=== PATIENT | male | born 1990 | race Caucasian/White ===

== ENCOUNTER 2020-09-22 15:15 | Emergency (ER) | payer BC ==
[2020-09-22 15:28] VITALS: BP 168/80; RESP 16; TEMP 97.9
[2020-09-22 15:29] VITALS: PULSE 71
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
--- NOTE | 2020-09-22 17:20 | XR ---
Result: Clinical History: Pain status post injury. Comparison: None available. Technique: 3 views of the right knee. 2 views of the right tibia and fibula. Findings: The bone mineralization is appropriate for age. There is 7 mm avulsion fracture of the lateral tibial plateau involving the collateral ligament attac hment. No evidence of dislocation. The joint spaces are preserved. There is small knee joint effusio n. No evidence of fracture fracture of the distal tibia and fibula. Impression: Small avulsion fracture of the lateral tibial plateau involving the collateral ligament attachment.
== END 2020-09-22 17:54 | disposition home or self-care (01) ==
LOC: EC 15:15
DX: S82.121A Displaced fracture of lateral condyle of right tibia, initial encounter for closed fracture (principal); V19.9XXA Pedal cyclist (driver) (passenger) injured in unspecified traffic accident, initial encounter
CPT/HCPCS: 73590; 73564; 99283; L1830 ×2

== ENCOUNTER → 2020-09-27 | Outpatient (CLI) | payer BC ==
--- NOTE | 2020-09-27 15:30 | US ---
EXAMINATION TYPE: US venous doppler duplex LE RT DATE OF EXAM: 09/27/2020 3:05 PM COMPARISON: NONE CLINICAL HISTORY: M79.669 Pain in unspecified lower leg. SIDE PERFORMED: Right TECHNIQUE: The lower extremity deep venous system is examined utilizing real time linear array sonog tejas with graded compression, doppler sonography and color-flow sonography. VESSELS IMAGED: Common Femoral Vein Deep Femoral Vein Greater Saphenous Vein * Femoral Vein Popliteal Vein Small Saphenous Vein * Proximal Calf Veins (* superficial vessels) Right Leg: No evidence of deep venous thrombosis of the right lower extremity. IMPRESSION: 1. No evidence of deep venous thrombosis of the right lower extremity veins.
== END | disposition home or self-care (01) ==
LOC: RADUSWWP 13:43
PROVIDERS: ATTEND Orthopaedic Surgery
DX: M79.661 Pain in right lower leg (principal)

== ENCOUNTER 2021-12-29 08:22 | Emergency (ER) | payer BC ==
[2021-12-29 08:26] VITALS: RESP 18; TEMP 97.7
[2021-12-29] MEDS ORDERED: ONDANSETRON 4 MG/2 ML VIAL IVP STA (08:47)
[2021-12-29] MEDS ORDERED: SODIUM CHLORIDE 0.9% 1,000 ML IV STA (08:47)
--- NOTE | 2021-12-29 08:54 | ED ---
General Adult HPI - General Chief complaint: Abdominal Pain Stated complaint: Chest pain,ABD pain Time Seen by Provider: 12/29/21 08:25 Source: patient Mode of arrival: ambulatory Limitations: no limitations - History of Present Illness Initial comments: Dictation was produced using [employer] dictation software. please excuse any grammatical, word or spelling errors. Chief Complaint: 31-year-old male presents to the emergency department for abdominal pain History of Present Illness: Patient 31-year-old male presents emergency depart ment for epigastric abdominal pain. States that the pain woke him up from sleep last night. States that the pain is epigastric rate 70 back. He did have some nausea with nonbilious nonbloody emesis. Patient states that the pain is still present and has not gone away. Denies any colicky nature. Denies any history of abdominal surgery. No constitutional symptoms. He reports no relief with ta arpan any Zantac, Pepto-Bismol or Tums The ROS documented in this emergency department record has been reviewed and confirmed by me. Those systems with pertinent positive or negative responses have been documented in the HPI. All other systems are other negative and/or noncontributory. PHYSICAL EXAM: General Impression: Alert and oriented x3, not in acute distress HEENT: Normocephalic atraumatic, extra-ocular movements intact, pupils equal and reactive to light bilaterally, mucous membranes moist. Cardiovascular: Heart regular rate and rhythm Chest: Able to complete full sentences, no retractions, no tachypnea Abdomen: abdomen soft, mild palpatory tenderness to the epigastric area, non- distended, no organomegaly Musculoskeletal: Pulses present and equal in all extremities, no peripheral edema Motor: no focal deficits noted Neurological: CN II-XII grossly intact, no focal motor or sensory deficits noted Skin: Intact with no visualized rashes Psych: Normal affect and mood ED course: 31-year-old male presents to the emergency department for epigastric abdominal pain. Vital signs upon arrival are within acceptable limits. #3 evaluation obtained. CBC unremarkable. Metabolic panel is negative. Abdominal labs are negative. Lipase is normal. Abdominal x-ray shows no acute processes. Patient has no right upper quadrant palpatory tenderness. Negative Maria sign. Patient given GI cocktail. Patient reevaluated after given GI cocktail. He states that his symptoms do not significantly improve. Computed tomography scan was ordered. Computed tomography scan of the abdomen and pelvis with contrast shows no acute processes. At this point unclear what is causing patient's symptoms however do not is not having a life-threatening processes. He is well appearing and stable at the bedside. He is in no acute distress. Abdomen is still soft and minimally tender. Patient will be discharged advised follow-up with primary care doctor. Return precautions discussed. EKG interpretation: Ventricular rate 47, sinus bradycardia car to,. Interval 155, QS 12, QTC 396. No NH prolongation, no QTC prolongation, no ST or T-wave changes noted. Overall, this EKG is unremarkable - Related Data Home Medications Medication Instructions Recorded Confirmed Acetaminophen Tab [Tylenol Tab] 1,000 mg PO Q6H PRN 12/29/21 12/29/21 Famotidine [Zantac-360 10 mg PO DAILY PRN 12/29/21 12/29/21 (Famotidine)] Allergies Allergy/AdvReac Type Severity Reaction Status Date / Time amoxicillin Allergy Rash/Hives Verified 12/29/21 10:34 Penicillins Allergy Rash/Hives Verified 12/29/21 10:34 Review of Systems ROS Statement: Those systems with pertinent positive or pertinent negative responses have been documented in the HPI. ROS Other: All systems not noted in ROS Statement are negative. Past Medical History Past Medical History: GERD/Reflux History of Any Multi-Drug Resistant Organisms: None Reported Past Surgical History: Orthopedic Surgery Additional Past Surgical History / Comment(s): right knee Past Psychological History: No Psychological Hx Reported Smoking Status: Never smoker Past Alcohol Use History: None Reported Past Drug Use History: None Reported General Exam Limitations: no limitations Course Vital Signs 12/29/21 12/29/21 08:23 10:32 Temperature 97.7 F Pulse Rate 58 L 68 Respiratory 18 18 Rate Blood Pressure 157/99 138/103 O2 Sat by Pulse 98 96 Oximetry Medical Decision Making - Lab Data Result diagrams: 12/29/21 08:51 12/29/21 08:51 Lab Results 12/29/21 12/29/21 12/29/21 Range/Units 08:51 08:51 08:58 WBC 10.0 (3.8-10.6) k/uL RBC 5.09 (4.30-5.90) m/uL Hgb 16.2 (13.0-17.5) gm/dL Hct 47.8 (39.0-53.0) % MCV 93.9 (80.0-100.0) fL MCH 31.8 (25.0-35.0) pg MCHC 33.9 (31.0-37.0) g/dL RDW 12.3 (11.5-15.5) % Plt Count 317 (150-450) k/uL MPV 7.4 Neutrophils % 77 % Lymphocytes % 17 % Monocytes % 4 % Eosinophils % 0 % Basophils % 1 % Neutrophils # 7.7 (1.3-7.7) k/uL Lymphocytes # 1.7 (1.0-4.8) k/uL Monocytes # 0.4 (0-1.0) k/uL Eosinophils # 0.0 (0-0.7) k/uL Basophils # 0.1 (0-0.2) k/uL Sodium 142 (137-145) mmol/L Potassium 4.5 (3.5-5.1) mmol/L Chloride 101 (98-107) mmol/L Carbon Dioxide 27 (22-30) mmol/L Anion Gap 14 mmol/L BUN 13 (9-20) mg/dL Creatinine 0.77 (0.66-1.25) mg/dL Est GFR (CKD-EPI)AfAm >90 (>60 ml/min/1.73 sqM) Est GFR (CKD-EPI)NonAf >90 (>60 ml/min/1.73 sqM) Glucose 138 H (74-99) mg/dL Calcium 10.2 (8.4-10.2) mg/dL Total Bilirubin 1.1 (0.2-1.3) mg/dL AST 41 (17-59) U/L ALT 32 (4-49) U/L Alkaline Phosphatase 90 (38-126) U/L Troponin I <0.012 (0.000-0.034) ng/mL Total Protein 8.8 H (6.3-8.2) g/dL Albumin 5.3 H (3.5-5.0) g/dL Lipase 62 (23-300) U/L Disposition Clinical Impression: Abdominal pain Disposition: HOME SELF-CARE Condition: Fair Instructions (If sedation given, give patient instructions): Abdominal Pain (ED) Is patient prescribed a controlled substance at d/c from ED?: No Referrals: Andrzej Saeed MD [Primary Care Provider] - 1-2 days Time of Disposition: 11:43
[2021-12-29] MEDS ORDERED: MORPHINE SULFATE 4 MG/ML SYRINGE IV STA (09:10)
[2021-12-29 09:21] LABS: Basophils # (A) 0.1 k/uL (0-0.2); Basophils % (A) 1 %; Eosinophils % (A) 0 %; HCT 47.8 % (39.0-53.0); HGB 16.2 gm/dL (13.0-17.5); Lymphocytes # (A) 1.7 k/uL (1.0-4.8); Lymphocytes % (A) 17 %; MCH 31.8 pg (25.0-35.0); MCHC 33.9 g/dL (31.0-37.0); MCV 93.9 fL (80.0-100.0); Mean Platelet Volume 7.4; Monocytes # (A) 0.4 k/uL (0-1.0); Monocytes % (A) 4 %; Neutrophils # (A) 7.7 k/uL (1.3-7.7); Neutrophils % (A) 77 %; Platelet Count 317 k/uL (150-450); RBC 5.09 m/uL (4.30-5.90); RDW 12.3 % (11.5-15.5)
[2021-12-29 09:34] LABS: ALT 32 U/L (4-49); AST 41 U/L (17-59); African American GFR (CKD) >90 (>60 ml/min/1.73 sqM); Albumin 5.3 g/dL (3.5-5.0); Alkaline Phosphatase 90 U/L (38-126); Anion Gap 14 mmol/L; Blood Urea Nitrogen 13 mg/dL (9-20); Calcium 10.2 mg/dL (8.4-10.2); Carbon Dioxide 27 mmol/L (22-30); Chloride 101 mmol/L (98-107); Glucose 138 mg/dL (74-99); Lipase 62 U/L (23-300); Non-African American GFR(CKD) >90 (>60 ml/min/1.73 sqM); Potassium 4.5 mmol/L (3.5-5.1); Sodium 142 mmol/L (137-145); Total Bilirubin 1.1 mg/dL (0.2-1.3); Total Protein 8.8 g/dL (6.3-8.2)
[2021-12-29] MEDS ORDERED: MAG HYDROX/AL HYDROX/SIMETH 30 ML, HYOSCYAMINE ELIXIR 10 ML, LIDOCAINE VISCOUS 2% 10 ML PO STA ×3 (09:57)
--- NOTE | 2021-12-29 10:14 | XR ---
EXAMINATION TYPE: XR abdomen 1V DATE OF EXAM: 12/29/2021 10:05 AM INDICATION: Patient age:Male; 31 years old; Reason for study: epigastric abdominal pain; COMPARISON: None. TECHNIQUE: One radiographic view of the abdomen was obtained. FINDINGS: The bowel gas pattern is nonspecific without dilated loops of small or large bowel. There i s no evidence for organomegaly or pneumoperitoneum. The osseous structures are intact. No abnormal calcifications are present. Fecal material and gas are demonstrated throughout the colon and rectum. IMPRESSION: Nonspecific bowel gas pattern without radiographic evidence for acute process.
--- NOTE | 2021-12-29 11:28 | CT ---
EXAMINATION TYPE: CT abdomen pelvis w con DATE OF EXAM: 12/29/2021 COMPARISON: None HISTORY: Abdominal pain that radiates up into chest CT DLP: 1677.4 mGycm CONTRAST: CT scan of the abdomen and pelvis is performed without Oral Contrast and with IV Contrast, patient in jected with 100 mL of Isovue 300. FINDINGS: LUNG BASES-: No visible nodule. No infiltrate. LIVER/GB: No calcified gallstones. Mild hepatic steatosis noted. No space occupying hepatic lesion. Biliary tree is of normal caliber. PANCREAS: No inflammation. No distinct mass. SPLEEN: No splenic enlargement. No lesion seen. ADRENALS: No nodule. No thickening. KIDNEYS/BLADDER: No hydronephrosis. No nephrolithiasis. No distinct renal mass. Urinary bladder g rossly unremarkable. BOWEL: Normal appendix. Normal bowel caliber. No inflammation. GENITAL ORGANS: No gross abnormality. LYMPH NODES: No greater than 1cm abdominal or pelvic lymph nodes are appreciated. AORTA: No significant abnormality. OSSEOUS STRUCTURES: No significant abnormality is seen. OTHER: No significant additional abnormality is seen. IMPRESSION: 1. No significant abnormality to account for the patient's symptoms.
[2021-12-29 11:54] VITALS: BP 144/89; PULSE 51
== END 2021-12-29 11:54 | disposition home or self-care (01) ==
LOC: EC 08:22
DX: R10.13 Epigastric pain (principal); Z88.0 Allergy status to penicillin
CPT/HCPCS: 36415; 93005; 80053; 83690; 84484; 85025; 74018; 74177; 99285; 96374; 96375; 96361; J2270; J2405; Q9967

== ENCOUNTER 2022-01-22 20:28 | Emergency (ER) | payer BC ==
[2022-01-22 22:15] VITALS: BP 157/104; PULSE 88; RESP 20; TEMP 97.9
[2022-01-22 22:41] LABS: Appearance,Urine Clear (Clear); Bacteria,Urine Rare /hpf; Bilirubin,Urine 2+ (Negative); Blood,Urine Small (Negative); Color,Urine Dark Yellow; Glucose,Urine (UA) Negative (Negative); Ketones,Urine 1+ (Negative); Leukocyte Esterase,Urine Negative (Negative); Mucus,Urine Rare /hpf; Nitrite,Urine Negative (Negative); PH, Urine 5.5 (5.0-8.0); Protein,Urine Negative (Negative); RBC,Urine 1 /hpf (0-5); Specific Gravity,Urine 1.017 (1.001-1.035); Squamous Epithelial Cell,Urine <1 /hpf (0-4); WBC,Urine <1 /hpf (0-5)
--- NOTE | 2022-01-22 23:16 | US ---
EXAMINATION TYPE: US abdomen limited DATE OF EXAM: 01/22/2022 COMPARISON: CT:12/29/21 CLINICAL HISTORY: rule out gallstones- abdominal pain/abnormal labs. abnormal labs, RUQ pain TECHNIQUE: Multiple sonographic images of the right upper quadrant are obtained. FINDINGS: EXAM MEASUREMENTS: Liver Length: 13.0 cm Gallbladder Wall: 0.63 cm CBD: 0.70 cm Right Kidney: 12.6 x 6.2 x 6.9 cm PROFESSIONAL FIGHTER NOTES: Pancreas: Parts visualized appear wnl Liver: Limited due to body habitus. increased attenuation Gallbladder: multiple gallstones visualized Evidence for sonographic Maria's sign: no CBD: limited visualization. Possibly dilated Right Kidney: wnl IMPRESSION: There are numerous gallstones. Intrahepatic bile ducts are not dilated. No free fluid.
[2022-01-23 00:23] LABS: Basophils # (A) 0.1 k/uL (0-0.2); Basophils % (A) 1 %; Eosinophils # (A) 0.2 k/uL (0-0.7); Eosinophils % (A) 2 %; HGB 15.2 gm/dL (13.0-17.5); Lymphocytes # (A) 2.2 k/uL (1.0-4.8); Lymphocytes % (A) 26 %; MCH 30.9 pg (25.0-35.0); MCHC 33.7 g/dL (31.0-37.0); MCV 91.6 fL (80.0-100.0); Mean Platelet Volume 8.3; Monocytes # (A) 0.5 k/uL (0-1.0); Monocytes % (A) 6 %; Neutrophils # (A) 5.2 k/uL (1.3-7.7); Neutrophils % (A) 62 %; Platelet Count 249 k/uL (150-450); RBC 4.91 m/uL (4.30-5.90); RDW 12.3 % (11.5-15.5); WBC 8.3 k/uL (3.8-10.6)
[2022-01-23 00:32] LABS: ALT 506 U/L (4-49); AST 269 U/L (17-59); African American GFR (CKD) >90 (>60 ml/min/1.73 sqM); Albumin 5.2 g/dL (3.5-5.0); Alkaline Phosphatase 179 U/L (38-126); Amylase 55 U/L (30-110); Anion Gap 19 mmol/L; Blood Urea Nitrogen 13 mg/dL (9-20); Calcium 10.2 mg/dL (8.4-10.2); Carbon Dioxide 23 mmol/L (22-30); Chloride 99 mmol/L (98-107); Glucose 94 mg/dL (74-99); Lipase 140 U/L (23-300); Non-African American GFR(CKD) >90 (>60 ml/min/1.73 sqM); Potassium 3.8 mmol/L (3.5-5.1); Sodium 141 mmol/L (137-145); Total Bilirubin 8.4 mg/dL (0.2-1.3); Total Protein 8.7 g/dL (6.3-8.2)
--- NOTE | 2022-01-23 01:20 | ED ---
General Adult HPI - General Chief complaint: Recheck/Abnormal Lab/Rx Stated complaint: Abnormal labs Time Seen by Provider: 01/23/22 01:12 Source: patient Mode of arrival: ambulatory Limitations: no limitations - History of Present Illness Initial comments: This patient is a 32-year-old man presenting to have further evaluation of right upper quadrant and epigastric abdominal pain that radiates to his back. This had started approximately 3 weeks ago and he was seen here having lab tests and computed tomography scan. At the time of this felt this probably represented reflux or gastritis. The patient has been taking a PPI and Carafate but notes t hat he continues to have episodes of pain. He notes it is particularly worse if he eats anything fatty particularly ice cream set off an episode. The patient had lab tests at his physician's office and was called back because there was an elevation of AST ALT alk phos and bilirubin. He was sent here to have ultrasound. when I see the patient he states the pain is not too bad at the moment and he is not having nausea or vomiting. He has not had fever or chills. Onset/Timin -: week(s) Location: abdomen Radiation: back Quality: aching Consistency: intermittent Improves with: none Worsens with: eating Associated Symptoms: other Treatments Prior to Arrival: other - Related Data Home Medications Medication Instructions Recorded Confirmed Acetaminophen Tab [Tylenol Tab] 1,000 mg PO Q6H PRN 12/29/21 12/29/21 Famotidine [Zantac-360 10 mg PO DAILY PRN 12/29/21 12/29/21 (Famotidine)] Allergies Allergy/AdvReac Type Severity Reaction Status Date / Time amoxicillin Allergy Rash/Hives Verified 01/22/22 22:15 Penicillins Allergy Rash/Hives Verified 01/22/22 22:15 Review of Systems ROS Statement: Those systems with pertinent positive or pertinent negative responses have been documented in the HPI. ROS Other: All systems not noted in ROS Statement are negative. Constitutional: Denies: fever, chills Respiratory: Denies: cough, dyspnea Cardiovascular: Denies: chest pain, palpitations Gastrointestinal: Reports: abdominal pain, nausea. Denies: vomiting, diarrhea, constipation, melena, hematochezia Genitourinary: Denies: dysuria, hematuria, testicular pain, testicular mass Musculoskeletal: Denies: back pain Skin: Denies: rash Neurological: Denies: headache Past Medical History Past Medical History: GERD/Reflux History of Any Multi-Drug Resistant Organisms: None Reported Past Surgical History: Orthopedic Surgery Additional Past Surgical History / Comment(s): right knee Past Psychological History: No Psychological Hx Reported Smoking Status: Never smoker Past Alcohol Use History: None Reported Past Drug Use History: None Reported General Exam Limitations: no limitations General appearance: alert, in no apparent distress Head exam: Present: atraumatic, normocephalic Eye exam: Present: normal appearance, EOMI, scleral icterus. Absent: conjunctival injection ENT exam: Present: normal oropharynx Neck exam: Present: normal inspection Respiratory exam: Present: normal lung sounds bilaterally Cardiovascular Exam: Present: regular rate, normal rhythm, normal heart sounds. Absent: systolic murmur, diastolic murmur, rubs, gallop GI/Abdominal exam: Present: soft. Absent: distended, tenderness, guarding, rebound, rigid, organomegaly, mass, pulsatile mass Extremities exam: Present: normal inspection, normal capillary refill. Absent: pedal edema, calf tenderness Back exam: Present: normal inspection. Absent: CVA tenderness (R), CVA tenderness (L) Neurological exam: Present: alert Skin exam: Present: warm, dry, intact, normal color. Absent: rash Course Vital Signs 01/22/22 22:11 Temperature 97.9 F Pulse Rate 88 Respiratory 20 Rate Blood Pressure 157/104 O2 Sat by Pulse 100 Oximetry Medical Decision Making - Medical Decision Making Patient's 32-year-old man with proximal 3 weeks of biliary colic type symptoms. Today he does have elevation of his transaminases, alk phos and bilirubin. The ultrasound is not showing ductal dilatation. The patient's symptoms have improved. Discussed appropriate further care and follow-up as well as return parameters and patient to have surgical referral. - Lab Data Result diagrams: 01/23/22 00:01 01/23/22 00:01 Lab Results 01/22/22 01/23/22 01/23/22 Range/Units : 00:01 00:01 WBC 8.3 (3.8-10.6) k/uL RBC 4.91 (4.30-5.90) m/uL Hgb 15.2 (13.0-17.5) gm/dL Hct 45.0 (39.0-53.0) % MCV 91.6 (80.0-100.0) fL MCH 30.9 (25.0-35.0) pg MCHC 33.7 (31.0-37.0) g/dL RDW 12.3 (11.5-15.5) % Plt Count 249 (150-450) k/uL MPV 8.3 Neutrophils % 62 % Lymphocytes % 26 % Monocytes % 6 % Eosinophils % 2 % Basophils % 1 % Neutrophils # 5.2 (1.3-7.7) k/uL Lymphocytes # 2.2 (1.0-4.8) k/uL Monocytes # 0.5 (0-1.0) k/uL Eosinophils # 0.2 (0-0.7) k/uL Basophils # 0.1 (0-0.2) k/uL Sodium 141 (137-145) mmol/L Potassium 3.8 (3.5-5.1) mmol/L Chloride 99 (98-107) mmol/L Carbon Dioxide 23 (22-30) mmol/L Anion Gap 19 mmol/L BUN 13 (9-20) mg/dL Creatinine 0.86 (0.66-1.25) mg/dL Est GFR (CKD-EPI)AfAm >90 (>60 ml/min/1.73 sqM) Est GFR (CKD-EPI)NonAf >90 (>60 ml/min/1.73 sqM) Glucose 94 (74-99) mg/dL Plasma Lactic Acid Jose (0.7-2.0) mmol/L Calcium 10.2 (8.4-10.2) mg/dL Total Bilirubin 8.4 H (0.2-1.3) mg/dL AST 269 H (17-59) U/L ALT 506 H (4-49) U/L Alkaline Phosphatase 179 H (38-126) U/L Total Protein 8.7 H (6.3-8.2) g/dL Albumin 5.2 H (3.5-5.0) g/dL Amylase 55 (30-110) U/L Lipase 140 (23-300) U/L Urine Color Dark Yellow Urine Appearance Clear (Clear) Urine pH 5.5 (5.0-8.0) Ur Specific [place] 1.017 (1.001-1.035) Urine Protein Negative (Negative) Urine Glucose (UA) Negative (Negative) Urine Ketones 1+ H (Negative) Urine Blood Small H (Negative) Urine Nitrite Negative (Negative) Urine Bilirubin 2+ H (Negative) Urine Urobilinogen 4.0 (<2.0) mg/dL Ur Leukocyte Esterase Negative (Negative) Urine RBC 1 (0-5) /hpf Urine WBC <1 (0-5) /hpf Ur Squamous Epith Cells <1 (0-4) /hpf Urine Bacteria Rare H (None) /hpf Urine Mucus Rare H (None) /hpf 01/23/22 Range/Units 00:01 WBC (3.8-10.6) k/uL RBC (4.30-5.90) m/uL Hgb (13.0-17.5) gm/dL Hct (39.0-53.0) % MCV (80.0-100.0) fL MCH (25.0-35.0) pg MCHC (31.0-37.0) g/dL RDW (11.5-15.5) % Plt Count (150-450) k/uL MPV Neutrophils % % Lymphocytes % % Monocytes % % Eosinophils % % Basophils % % Neutrophils # (1.3-7.7) k/uL Lymphocytes # (1.0-4.8) k/uL Monocytes # (0-1.0) k/uL Eosinophils # (0-0.7) k/uL Basophils # (0-0.2) k/uL Sodium (137-145) mmol/L Potassium (3.5-5.1) mmol/L Chloride (98-107) mmol/L Carbon Dioxide (22-30) mmol/L Anion Gap mmol/L BUN (9-20) mg/dL Creatinine (0.66-1.25) mg/dL Est GFR (CKD-EPI)AfAm (>60 ml/min/1.73 sqM) Est GFR (CKD-EPI)NonAf (>60 ml/min/1.73 sqM) Glucose (74-99) mg/dL Plasma Lactic Acid Jose 1.0 (0.7-2.0) mmol/L Calcium (8.4-10.2) mg/dL Total Bilirubin (0.2-1.3) mg/dL AST (17-59) U/L ALT (4-49) U/L Alkaline Phosphatase (38-126) U/L Total Protein (6.3-8.2) g/dL Albumin (3.5-5.0) g/dL Amylase (30-110) U/L Lipase (23-300) U/L Urine Color Urine Appearance (Clear) Urine pH (5.0-8.0) Ur Specific [place] (1.001-1.035) Urine Protein (Negative) Urine Glucose (UA) (Negative) Urine Ketones (Negative) Urine Blood (Negative) Urine Nitrite (Negative) Urine Bilirubin (Negative) Urine Urobilinogen (<2.0) mg/dL Ur Leukocyte Esterase (Negative) Urine RBC (0-5) /hpf Urine WBC (0-5) /hpf Ur Squamous Epith Cells (0-4) /hpf Urine Bacteria (None) /hpf Urine Mucus (None) /hpf Disposition Clinical Impression: Jaundice, Biliary colic, Hepatitis, Hypertension Disposition: HOME SELF-CARE Condition: Fair Instructions (If sedation given, give patient instructions): Biliary Colic (ED), Hypertension (ED) Is patient prescribed a controlled substance at d/c from ED?: No Referrals: Andrzej Saeed MD [Primary Care Provider] - 1-2 days Luz Marina Parikh MD [STAFF PHYSICIAN] - 1-2 days
[2022-01-23 02:22] LABS: Partial Thromboplastin Time 24.8 sec (22.0-30.0); Prothrombin Time 10.4 sec (9.0-12.0)
[2022-01-23 09:34] LABS: Hepatitis A Antibody IgM Nonreactive (Nonreactive); Hepatitis B Core IgM Nonreactive (Nonreactive); Hepatitis B Surface Antigen Nonreactive (Nonreactive); Hepatitis C IgG Antibody Nonreactive (Nonreactive)
== END 2022-01-23 02:40 | disposition home or self-care (01) ==
LOC: EC 20:28
DX: K80.50 Calculus of bile duct without cholangitis or cholecystitis without obstruction (principal); R17 Unspecified jaundice; I10 Essential (primary) hypertension; Z88.0 Allergy status to penicillin; K21.9 Gastro-esophageal reflux disease without esophagitis; Z79.899 Other long term (current) drug therapy
CPT/HCPCS: 36415; 76705; 80053; 80074; 81001; 82150; 83605; 83690; 85025; 85610; 85730; 99284

== ENCOUNTER 2022-01-30 11:44 | Emergency (ER) | payer BC ==
[2022-01-30] MEDS ORDERED: HYDROmorphone 0.5 MG/0.5 ML SYRINGE IVP STA (12:45)
[2022-01-30] MEDS ORDERED: SODIUM CHLORIDE 0.9% 1,000 ML IV STA (12:45)
--- NOTE | 2022-01-30 13:00 | ED ---
General Adult HPI - General Chief complaint: Abdominal Pain Stated complaint: gallbladder problems Time Seen by Provider: 01/30/22 12:27 Source: patient, RN notes reviewed, old records reviewed Mode of arrival: ambulatory - History of Present Illness Initial comments: 32-year-old male presents for reevaluation of right upper quadrant pain. Patient had presented approximately one week ago, found to have gallstones as well as a transaminitis and hyperbilirubinemia. He states that he's been drinking water and eating a bland diet. He has an appointment with surgery but this is scheduled for several weeks out. He has not had a measured fever. He's had right upper quadrant pain. No alcohol abuse. - Related Data Home Medications Medication Instructions Recorded Confirmed Esomeprazole Magnesium [NexIUM] 40 mg PO DAILY 01/30/22 01/30/22 Sucralfate [Carafate] 1 gm PO BID 01/30/22 01/30/22 Allergies Allergy/AdvReac Type Severity Reaction Status Date / Time amoxicillin Allergy Rash/Hives Verified 01/30/22 14:23 Penicillins Allergy Rash/Hives Verified 01/30/22 14:23 Review of Systems ROS Statement: Those systems with pertinent positive or pertinent negative responses have been documented in the HPI. ROS Other: All systems not noted in ROS Statement are negative. Past Medical History Past Medical History: GERD/Reflux History of Any Multi-Drug Resistant Organisms: None Reported Past Surgical History: Orthopedic Surgery Additional Past Surgical History / Comment(s): right knee Past Psychological History: No Psychological Hx Reported Smoking Status: Never smoker Past Alcohol Use History: None Reported Past Drug Use History: None Reported General Exam General appearance: alert, in no apparent distress Head exam: Present: atraumatic, normocephalic Eye exam: Present: normal appearance, PERRL. Absent: scleral icterus Neck exam: Present: normal inspection Respiratory exam: Present: normal lung sounds bilaterally. Absent: respiratory distress, wheezes Cardiovascular Exam: Present: regular rate, normal rhythm GI/Abdominal exam: Present: soft, tenderness (Right upper quadrant). Absent: distended Extremities exam: Present: normal inspection, normal capillary refill Neurological exam: Present: alert, oriented X3, CN II-XII intact. Absent: motor sensory deficit Psychiatric exam: Present: normal affect, normal mood Skin exam: Present: warm, dry, intact. Absent: cyanosis, diaphoretic Course Vital Signs 01/30/22 12:15 Temperature 98.4 F Pulse Rate 89 Respiratory 18 Rate Blood Pressure 152/80 O2 Sat by Pulse 100 Oximetry Medical Decision Making - Medical Decision Making 32-year-old male with persistent right upper quadrant pain, recent diagnosis of gallstones and elevated bilirubin. Workup is initiated, he has a leukocytosis, he has an elevated troponin at 3.4 which is significantly improved. His liver enzymes are elevated. He had a negative hepatitis panel on recent admission. He has a elevated lipase with concern for gallstone pancreatitis and choledocholithiasis. He started on antibiotics. Ultrasound is performed in the emergency department which shows common bile duct of 0.6 cm, gallstones. Patient will be transferred to [facility] where there is both gas troenterology and general surgery. Accepting physician Dr. Tello - Lab Data Result diagrams: 01/30/22 12:51 01/30/22 12:51 Lab Results 01/30/22 01/30/22 01/30/22 Range/Units 12:51 12:51 12:51 WBC 13.2 H (3.8-10.6) k/uL RBC 4.70 (4.30-5.90) m/uL Hgb 14.8 (13.0-17.5) gm/dL Hct 45.1 (39.0-53.0) % MCV 95.9 (80.0-100.0) fL MCH 31.6 (25.0-35.0) pg MCHC 32.9 (31.0-37.0) g/dL RDW 12.4 (11.5-15.5) % Plt Count 278 (150-450) k/uL MPV 9.3 Neutrophils % 86 % Lymphocytes % 6 % Monocytes % 7 % Eosinophils % 0 % Basophils % 0 % Neutrophils # 11.4 H (1.3-7.7) k/uL Lymphocytes # 0.7 L (1.0-4.8) k/uL Monocytes # 0.9 (0-1.0) k/uL Eosinophils # 0.0 (0-0.7) k/uL Basophils # 0.0 (0-0.2) k/uL PT 10.8 (9.0-12.0) sec INR 1.0 (<1.2) APTT 21.4 L (22.0-30.0) sec Sodium (137-145) mmol/L Potassium (3.5-5.1) mmol/L Chloride (98-107) mmol/L Carbon Dioxide (22-30) mmol/L Anion Gap mmol/L BUN (9-20) mg/dL Creatinine (0.66-1.25) mg/dL Est GFR (CKD-EPI)AfAm (>60 ml/min/1.73 sqM) Est GFR (CKD-EPI)NonAf (>60 ml/min/1.73 sqM) Glucose (74-99) mg/dL Plasma Lactic Acid Jose (0.7-2.0) mmol/L Calcium (8.4-10.2) mg/dL Total Bilirubin (0.2-1.3) mg/dL AST (17-59) U/L ALT (4-49) U/L Alkaline Phosphatase (38-126) U/L Total Protein (6.3-8.2) g/dL Albumin (3.5-5.0) g/dL Amylase (30-110) U/L Lipase (23-300) U/L Urine Color Yellow Urine Appearance Clear (Clear) Urine pH 8.0 (5.0-8.0) Ur Specific [place] 1.010 (1.001-1.035) Urine Protein Negative (Negative) Urine Glucose (UA) Negative (Negative) Urine Ketones Negative (Negative) Urine Blood Negative (Negative) Urine Nitrite Negative (Negative) Urine Bilirubin Negative (Negative) Urine Urobilinogen 8.0 (<2.0) mg/dL Ur Leukocyte Esterase Negative (Negative) 01/30/22 01/30/22 Range/Units 12:51 12:51 WBC (3.8-10.6) k/uL RBC (4.30-5.90) m/uL Hgb (13.0-17.5) gm/dL Hct (39.0-53.0) % MCV (80.0-100.0) fL MCH (25.0-35.0) pg MCHC (31.0-37.0) g/dL RDW (11.5-15.5) % Plt Count (150-450) k/uL MPV Neutrophils % % Lymphocytes % % Monocytes % % Eosinophils % % Basophils % % Neutrophils # (1.3-7.7) k/uL Lymphocytes # (1.0-4.8) k/uL Monocytes # (0-1.0) k/uL Eosinophils # (0-0.7) k/uL Basophils # (0-0.2) k/uL PT (9.0-12.0) sec INR (<1.2) APTT (22.0-30.0) sec Sodium 141 (137-145) mmol/L Potassium 4.3 (3.5-5.1) mmol/L Chloride 101 (98-107) mmol/L Carbon Dioxide 26 (22-30) mmol/L Anion Gap 14 mmol/L BUN 13 (9-20) mg/dL Creatinine 0.79 (0.66-1.25) mg/dL Est GFR (CKD-EPI)AfAm >90 (>60 ml/min/1.73 sqM) Est GFR (CKD-EPI)NonAf >90 (>60 ml/min/1.73 sqM) Glucose 138 H (74-99) mg/dL Plasma Lactic Acid Jose 1.2 (0.7-2.0) mmol/L Calcium 10.1 (8.4-10.2) mg/dL Total Bilirubin 3.4 H (0.2-1.3) mg/dL AST 676 H (17-59) U/L ALT 700 H (4-49) U/L Alkaline Phosphatase 288 H (38-126) U/L Total Protein 8.2 (6.3-8.2) g/dL Albumin 5.1 H (3.5-5.0) g/dL Amylase (30-110) U/L Lipase >35740 H (23-300) U/L Urine Color Urine Appearance (Clear) Urine pH (5.0-8.0) Ur Specific [place] (1.001-1.035) Urine Protein (Negative) Urine Glucose (UA) (Negative) Urine Ketones (Negative) Urine Blood (Negative) Urine Nitrite (Negative) Urine Bilirubin (Negative) Urine Urobilinogen (<2.0) mg/dL Ur Leukocyte Esterase (Negative) Disposition Clinical Impression: Gallstone pancreatitis, Choledocholithiasis, Hyperbilirubinemia Disposition: OTHER INSTITUTION NOT DEFINED Condition: Stable Is patient prescribed a controlled substance at d/c from ED?: No Referrals: Andrzej Saeed MD [Primary Care Provider] - 1-2 days Time of Disposition: 14:38 - Out of Hospital Transfer - Req. Specs Out of Hospital Transfer - Requested Specifics: Other Emergency Center ([facility])
[2022-01-30 13:09] LABS: Basophils % (A) 0 %; Eosinophils % (A) 0 %; HCT 45.1 % (39.0-53.0); HGB 14.8 gm/dL (13.0-17.5); Lymphocytes # (A) 0.7 k/uL (1.0-4.8); Lymphocytes % (A) 6 %; MCH 31.6 pg (25.0-35.0); MCHC 32.9 g/dL (31.0-37.0); MCV 95.9 fL (80.0-100.0); Mean Platelet Volume 9.3; Monocytes # (A) 0.9 k/uL (0-1.0); Monocytes % (A) 7 %; Neutrophils # (A) 11.4 k/uL (1.3-7.7); Neutrophils % (A) 86 %; Platelet Count 278 k/uL (150-450); RDW 12.4 % (11.5-15.5); WBC 13.2 k/uL (3.8-10.6)
[2022-01-30 13:25] LABS: ALT 700 U/L (4-49); AST 676 U/L (17-59); African American GFR (CKD) >90 (>60 ml/min/1.73 sqM); Albumin 5.1 g/dL (3.5-5.0); Alkaline Phosphatase 288 U/L (38-126); Anion Gap 14 mmol/L; Blood Urea Nitrogen 13 mg/dL (9-20); Calcium 10.1 mg/dL (8.4-10.2); Carbon Dioxide 26 mmol/L (22-30); Chloride 101 mmol/L (98-107); Glucose 138 mg/dL (74-99); Non-African American GFR(CKD) >90 (>60 ml/min/1.73 sqM); Potassium 4.3 mmol/L (3.5-5.1); Sodium 141 mmol/L (137-145); Total Bilirubin 3.4 mg/dL (0.2-1.3); Total Protein 8.2 g/dL (6.3-8.2)
[2022-01-30 13:27] LABS: Appearance,Urine Clear (Clear); Bilirubin,Urine Negative (Negative); Blood,Urine Negative (Negative); Color,Urine Yellow; Glucose,Urine (UA) Negative (Negative); Ketones,Urine Negative (Negative); Leukocyte Esterase,Urine Negative (Negative); Nitrite,Urine Negative (Negative); Protein,Urine Negative (Negative)
[2022-01-30 13:40] LABS: Prothrombin Time 10.8 sec (9.0-12.0)
[2022-01-30 13:48] LABS: Partial Thromboplastin Time 21.4 sec (22.0-30.0)
[2022-01-30 14:00] LABS: Lipase >20000 U/L (23-300)
[2022-01-30] MEDS ORDERED: LEVOFLOXACIN 500MG-D5W PMX 500 MG in DEXTROSE/WATER 1 100ML.BAG IVPB STA (14:07)
--- NOTE | 2022-01-30 14:45 | US ---
EXAMINATION TYPE: US gallbladder DATE OF EXAM: 01/30/2022 COMPARISON: 01/22/2022 right upper quadrant ultrasound CLINICAL HISTORY: ruq pain increasing TECHNIQUE: Multiple sonographic images of the right upper quadrant are obtained. FINDINGS: EXAM MEASUREMENTS: Liver Length: 12.8 cm Gallbladder Wall: 0.37 cm CBD: 0.6 cm Right Kidney: 11.5 x 5.4 x 6.1 cm LOGGING WORKER NOTES:Limited by overlying bowel gas Pancreas: Obscured by bowel gas Liver: Echogenic, slight heterogeneous with prominent intrahepatic biliary tree Gallbladder: Multiple mobile echogenic foci present. Thickened wall. Evidence for sonographic Maria's sign: No CBD: Borderline dilated, no discrete stone visualized within the bile duct, limited by overlying gal lbladder stone shadowing Right Kidney: wnl IMPRESSION: There are limitations to the exam. Correlate for hepatic steatosis. Cholelithiasis with borderline bi le duct dilation as noted on prior exam. Borderline gallbladder wall thickness, HIDA scan may be of b enefit
[2022-01-30 15:12] VITALS: BP 152/78; PULSE 98; RESP 18; TEMP 98.2
[2022-01-31 14:54] LABS: Amylase 3198 U/L (30-110)
== END 2022-01-30 15:24 | disposition other institution (70) ==
LOC: EC 11:44
DX: K85.10 Biliary acute pancreatitis without necrosis or infection (principal); K80.70 Calculus of gallbladder and bile duct without cholecystitis without obstruction; E80.6 Other disorders of bilirubin metabolism; K21.9 Gastro-esophageal reflux disease without esophagitis; Z88.1 Allergy status to other antibiotic agents; Z88.0 Allergy status to penicillin; Z79.899 Other long term (current) drug therapy
CPT/HCPCS: 96361 ×2; 96365 ×2; 96375 ×2; 99285; 99284; 36415; 80053; 82150; 83605; 83690; 85025; 85610; 85730; 81003; 76705; J1956; J1170